=== PATIENT | female | born 2000 | race American Indian/Alaskan Native ===

== ENCOUNTER 2022-01-15 18:50 | Emergency (ER) | payer SELFPAY ==
[2022-01-16] MEDS ORDERED: LORazepam 2 MG/ML VIAL ONE (09:18)
== END 2022-01-16 16:08 | disposition left against medical advice (07) ==
LOC: ED 18:50
DX: N63.0 Unspecified lump in unspecified breast (principal); Z53.21 Procedure and treatment not carried out due to patient leaving prior to being seen by health care provider
CPT/HCPCS: J2060